=== PATIENT | male | born 1950 | race Caucasian/White ===

== ENCOUNTER 2016-11-07 07:24 | Day surgery (SDC) | payer MEDICARE, BC ==
[~2016-11-07] VITALS: Ht 182.9 cm; Wt 68.7 kg
[~2016-11-07 07:24] MED LIST: COLCRYS
[2016-11-07] MEDS ORDERED: [UNRECOGNIZED DRUG - REMARK] (08:39)
[2016-11-07] MEDS ORDERED: ASPI81TA3 PO (08:39)
[2016-11-07 08:59] VITALS: BP 109/72; PULSE 68; RESP 18
[2016-11-07] MEDS ORDERED: LIDOCAINE 4% SOLUTION 50 ML BTL ONE (09:11)
[2016-11-07] MEDS ORDERED: MIDAZOLAM 1 MG/ML 2 ML INJ ONE ×2 (09:42→09:43)
[2016-11-07] MEDS ORDERED: FENTAnyl 50 MCG/ML VIAL ONE (09:42)
[2016-11-07 09:57] VITALS: BP 102/69; RESP 20
--- NOTE | 2016-11-08 07:58 | GILP ---
DATE OF PROCEDURE: PROCEDURE: Esophagogastroduodenoscopy. PREOPERATIVE DIAGNOSIS: The patient presenting with history of chronic heartburn unresponsive to ro utine therapy, rule out gastroesophageal reflux disease, rule out Pizarro's esophagus. POSTOPERATIVE DIAGNOSES: 1. Mild to moderate degree of reflux esophagitis, [place] classification A. 2. Small hiatal hernia. 3. Antral gastritis. DESCRIPTION OF PROCEDURE: After the informed written consent was obtained, the patient was asked to lie on the left lateral side, total of 4 mg of Versed and 50 mcg of fentanyl was given as intraveno us anesthesia. When the patient became somnolent, the Olympus video upper endoscope was introduced into the orophar ynx, then into the esophagus. Several areas of erythema noted above the GE junction indicating mild reflux esophagitis of [place] classification A. Small hiatal hernia was noted. Scope at this time was advanced into the stomach. Stomach showed evidence of several areas of erythema in the ant rum. The body and the lesser curvature appeared normal. The mucosa of the duodenum appeared normal up to the end of the third portion. At this time, biopsy was done from the antrum, the lesser curv ature, and the fundus to rule out H. pylori infection and at this time no additional abnormalities d etected and the procedure was terminated. PLAN: Recommend proton pump inhibitor therapy, Dexilant 60 mg once a day for 3 months. Dictated By: GRIS CHAVEZ/LUIS ALFREDO Conf#: [id number] DID#: [id number]
== END 2016-11-07 10:45 | disposition home or self-care (01) ==
LOC: GIL 07:24
PROVIDERS: ATTEND Internal Medicine Gastroenterology
DX: K21.0 Gastro-esophageal reflux disease with esophagitis (principal); K44.9 Diaphragmatic hernia without obstruction or gangrene; K29.60 Other gastritis without bleeding
CPT/HCPCS: 43239; 88305; 88312; 88313; J2250; J3010